=== PATIENT | female | born 1960 | race American Indian/Alaskan Native ===

== ENCOUNTER 2016-07-26 19:34 | Emergency (ER) | payer MEDICAID ==
[2016-07-26] MEDS ORDERED: CATAPRES ONE (21:16)
[2016-07-26] MEDS ORDERED: TYLENOL ONE (21:16)
[2016-07-26] MEDS ORDERED: TYLENOL PO ONE (21:20)
[2016-07-26] MEDS ORDERED: CATAPRES PO ONE (21:21)
[2016-07-26 21:54] LABS: Hematocrit 39.6 % (30.3-42.9); Hemoglobin 13.1 gm/dl (10.1-14.3); Mean Corpuscular HGB Conc 33 % (30-34); Mean Corpuscular Hemoglobin 28 pg (28-32); Mean Corpuscular Volume 85 fl (79-97); Platelet Count 277 K/mm3 (140-440); Red Blood Count 4.65 M/mm3 (3.65-5.03); Red Cell Distribution Width 15.6 % (13.2-15.2)
[2016-07-26 22:13] LABS: BUN/Creatinine Ratio 12.85; Blood Urea Nitrogen 9 mg/dL (7-17); Calcium 8.8 mg/dL (8.4-10.2); Carbon Dioxide 26 mmol/L (22-30); Glucose 101 mg/dL (65-100); Potassium 3.3 mmol/L (3.6-5.0); Sodium 142 mmol/L (137-145)
[2016-07-26 22:16] LABS: Anion Gap 16 mmol/L
--- NOTE | 2016-07-27 00:50 | Emergency Department Report ---
ED General Adult HPI - General Chief complaint: High BP Stated complaint: ELEVATED BLOOD PRESSURE Time Seen by Provider: 07/27/16 00:02 Source: patient Mode of arrival: Ambulatory Limitations: No Limitations - History of Present Illness Initial comments: Patient with hx of HTN on daily Lisinopril/HCTZ 29/06.5 presents with elevated BP since today. States had headache that has improved on Motrin. Denies chest pain, pressure or discomfort, vision loss or change, N/V, Weakness , or numbness. Reports compliance with BP meds. States has left hearing loss currently being managed by ENT. States scheduled to have MRI done tomorrow for this. denies other complaints. Severity scale (0 -10): 6 - Related Data Previous Rx's Medication Instructions Recorded Last Taken Type Metoprolol [Lopressor TAB] 25 mg PO HS #10 tablet 07/27/16 Unknown Rx Allergies Allergy/AdvReac Type Severity Reaction Status Date / Time No Known Allergies Allergy Verified 07/26/16 20:07 ED Review of Systems ROS: Stated complaint: ELEVATED BLOOD PRESSURE Other details as noted in HPI Comment: All other systems reviewed and negative ED Past Medical Hx - Past Medical History Previous Medical History?: Yes Hx Hypertension: Yes Hx Arthritis: Yes - Surgical History Past Surgical History?: Yes Additional Surgical History: back - Social History Smoking Status: Current Every Day Smoker Substance Use Type: None - Medications Home Medications: Home Medications Medication Instructions Recorded Confirmed Last Taken Type Metoprolol [Lopressor TAB] 25 mg PO HS #10 tablet 07/27/16 Unknown Rx ED Physical Exam - General Limitations: No Limitations General appearance: alert, in no apparent distress - Head Head exam: Present: atraumatic, normocephalic - Eye Eye exam: Present: normal appearance, PERRL, EOMI. Absent: scleral icterus, conjunctival injection, periorbital swelling, periorbital tenderness - ENT ENT exam: Present: normal exam, mucous membranes moist, TM's normal bilaterally , normal external ear exam - Neck Neck exam: Present: normal inspection, full ROM. Absent: tenderness, lymphadenopathy - Respiratory Respiratory exam: Present: normal lung sounds bilaterally. Absent: respiratory distress, chest wall tenderness, accessory muscle use, decreased breath sounds, prolonged expiratory - Cardiovascular Cardiovascular Exam: Present: regular rate, normal rhythm - GI/Abdominal GI/Abdominal exam: Present: soft. Absent: tenderness - Extremities Exam Extremities exam: Present: normal inspection, full ROM, normal capillary refill. Absent: tenderness, pedal edema, joint swelling, calf tenderness - Back Exam Back exam: Present: normal inspection, full ROM. Absent: tenderness, CVA tenderness (R), CVA tenderness (L) - Neurological Exam Neurological exam: Present: alert, oriented X3, normal gait, reflexes normal. Absent: motor sensory deficit - Psychiatric Psychiatric exam: Present: normal affect, normal mood - Skin Skin exam: Present: warm, dry, intact, normal color. Absent: diaphoretic ED Course Vital Signs 07/26/16 07/26/16 07/26/16 20:10 20:13 21:21 Temperature 98.4 F Pulse Rate 76 Respiratory 18 18 Rate Blood Pressure Blood Pressure [Left] Blood Pressure 194/112 176/100 [Right] O2 Sat by Pulse 100 Oximetry 07/26/16 07/26/16 07/27/16 21:22 22:37 00:05 Temperature Pulse Rate 87 73 84 Respiratory 16 Rate Blood Pressure 187/115 Blood Pressure 190/116 179/110 [Left] Blood Pressure [Right] O2 Sat by Pulse 95 Oximetry 07/27/16 07/27/16 07/27/16 00:39 00:57 01:38 Temperature Pulse Rate Respiratory Rate Blood Pressure 175/102 Blood Pressure 175/102 159/102 [Left] Blood Pressure [Right] O2 Sat by Pulse Oximetry ED Medical Decision Making - Lab Data Result diagrams: 07/26/16 21:38 07/26/16 21:38 Lab results reviewed. - Medical Decision Making 55 YOF with htn emergency x 1 day. Patient is stable. She will be DC'd on Metoprolol (see rx). She is to continue Lisinopril/HCTZ 29/06.5 as previously prescribed. Patient education, or follow-up/referral, and return instructions provided. She verbalized understanding and is agreeable to plan. Critical care attestation.: If time is entered above; I have spent that time in minutes in the direct care of this critically ill patient, excluding procedure time. ED Disposition Clinical Impression: Hypertensive emergency Disposition: DISCHARGED TO HOME OR SELFCARE Is pt being admited?: No Does the pt Need Aspirin: No Condition: Stable Instructions: Hypertension (ED) Additional Instructions: Follow instructions for care. Be compliant with medication(s). Start Metoprolol at bedtime as prescribed. Continue Lisinopril/HCTZ 20/12.5 as previously prescribed. Follow up with your PCP for BP recheck/monitor and follow up. Keep all healthcare related appointments. Return to ED for new or worsening condition. Prescriptions: Metoprolol [Lopressor TAB] 25 mg PO HS #10 tablet Referrals: PRIMARY CARE, [Primary Care Provider] - 24 Hours
[2016-07-27] MEDS ORDERED: CATAPRES PO ONE (00:52)
[2016-07-27 01:38] VITALS: BP 159/102
== END 2016-07-27 01:55 | disposition home or self-care (01) ==
LOC: ED 19:34
DX: I10 Essential (primary) hypertension (principal); M19.90 Unspecified osteoarthritis, unspecified site; F17.200 Nicotine dependence, unspecified, uncomplicated
CPT/HCPCS: 36415; 80048; 85027; 99283

== ENCOUNTER 2016-07-27 17:20 | Outpatient (CLI) | payer MEDICARE, MEDICAID ==
--- NOTE | 2016-07-28 14:40 | Magnetic Resonance Report ---
MRI BRAIN/IACS WITH AND WITHOUT CONTRAST: INDICATION: Left ear hearing loss. COMPARISON: None similar. FINDINGS: Multiplanar and multisequence MRI of the brain, including the ICAs performed utilizing 12 mL MultiHance intravenously. Symmetric, normal ventricles and sulci. Qyba-yt-yzwbwsau periventricular and white matter FLAIR and T2 weighted hyperintensities may represent small vessel end artery ischemic disease, including an approximately 4 mm periventricular lacunar infarct near the atrium of the right lateral ventricle, axial series 6, image 17. No acute infarct, hemorrhage, mass effect or midline shift. No abnormal extra-axial masses or fluid collections. Normal major intracranial vascular flow voids. No abnormal supratentorial enhancement. However, approximately 3-4 mm enhancing midline focus noted along the inferior susan/lower brainstem as on axial image 10, series 13, not perceptible on the precontrast images. Symmetric seventh and eighth nerve complexes without abnormal enhancement in the IACs. Normal remainder posterior fossa with preserved basilar cisterns. Normal eye globes. Mild bilateral ethmoid and frontal sinusitis, left more than right. Mild left sphenoid sinusitis as well. Clear remainder imaged paranasal sinuses and mastoid air cells. Partially empty sella. Normal remainder midline structures without evidence of Chiari malformation. Approximately 3 x 1.1 cm mild adenoidal prominence may be directly visualized. CONCLUSION: 1. Approximately 3-4 mm nonspecific enhancing focus in the inferior brainstem, as detailed above. 2. Various other incidental findings, including sinusitis, partially empty sella and slightly prominent adenoids in this patient with age-appropriate atrophy and microvascular changes, as detailed above. Thank you for the opportunity to participate in this patient's care.
== END 2016-07-27 17:21 | disposition home or self-care (01) ==
LOC: MRI 17:20
PROVIDERS: ATTEND Otolaryngology
DX: H91.20 Sudden idiopathic hearing loss, unspecified ear (principal); J32.2 Chronic ethmoidal sinusitis; J32.1 Chronic frontal sinusitis; J32.3 Chronic sphenoidal sinusitis; I63.8 Other cerebral infarction; G31.89 Other specified degenerative diseases of nervous system
CPT/HCPCS: 70553; A9577

== ENCOUNTER 2018-07-15 09:03 | Inpatient (IN) | payer OTHER, MEDICARE ==
--- NOTE | 2018-07-15 12:30 | Emergency Department Report ---
ED Neuro Deficit HPI - General Chief Complaint: Weakness Stated Complaint: FLANK PAIN Time Seen by Provider: 07/15/18 12:18 Source: patient, RN notes reviewed, old records reviewed Mode of arrival: Wheelchair Limitations: No Limitations - History of Present Illness Initial Comments: This is a pleasant 57-year-old female, who presents to the ER with the complaints of left leg weakness, left arm weakness, subjective unsteady gait, present since on a clock yesterday PM. Symptoms constant, painless, did not radiate anywhere, did not have exacerbating or relieving factors. Patient denies other complaints. -: Gradual (9:00 PM yesterday) Location: left arm, left leg Presenting Symptoms: Present: Weak/Paralyzed One Side. Absent: Sudden, Severe Headache, Blurred/Loss of Vision, Facial Droop/Numbness, Unable to Speak Clearly, Altered Mental Status History of same: No Place: home Severity: moderate Quality: weak Improves With: none Worsens With: none On Anticoagulants: No Context: sudden onset Associated Symptoms: denies other symptoms - Related Data Home Medications: Previous Rx's Medication Instructions Recorded Last Taken Type Metoprolol [Lopressor TAB] 25 mg PO HS #10 tablet 07/27/16 Unknown Rx Allergies/Adverse Reactions: Allergies Allergy/AdvReac Type Severity Reaction Status Date / Time No Known Allergies Allergy Verified 07/15/18 09:23 ED Review of Systems ROS: Stated complaint: FLANK PAIN Other details as noted in HPI Constitutional: denies: fever Eyes: denies: vision change ENT: denies: epistaxis Respiratory: denies: cough Cardiovascular: denies: chest pain Gastrointestinal: denies: abdominal pain Genitourinary: denies: dysuria Musculoskeletal: denies: back pain Skin: denies: lesions Neurological: weakness, numbness, abnormal gait. denies: headache Psychiatric: denies: anxiety ED Past Medical Hx - Past Medical History Previous Medical History?: Yes Hx Hypertension: Yes Hx GERD: Yes Hx Arthritis: Yes - Surgical History Past Surgical History?: Yes Additional Surgical History: Back, , bilateral foot surgery - Social History Smoking Status: Current Every Day Smoker Substance Use Type: Alcohol - Medications Home Medications: Home Medications Medication Instructions Recorded Confirmed Last Taken Type Metoprolol [Lopressor TAB] 25 mg PO HS #10 tablet 07/27/16 Unknown Rx ED Neuro Physical Exam - General Limitations: No Limitations General appearance: alert, in no apparent distress Suspected Stroke: Yes - Head Head exam: Present: atraumatic, normocephalic - Eye Eye exam: Present: normal appearance, PERRL, EOMI, other (visual acuity intact to finger counting, color perception, reading at a close distance). Absent: nystagmus - ENT ENT exam: Present: normal exam, normal orophraynx, mucous membranes moist, normal external ear exam - Neck Neck exam: Present: normal inspection, full ROM. Absent: tenderness, meningismus - Respiratory Respiratory exam: Present: normal lung sounds bilaterally. Absent: respiratory distress - Cardiovascular Cardiovascular Exam: Present: regular rate, normal rhythm, normal heart sounds. Absent: bradycardia, tachycardia, irregular rhythm, systolic murmur, diastolic murmur, rubs, gallop - GI/Abdominal GI/Abdominal exam: Present: soft. Absent: distended, tenderness, guarding, rebound, rigid, pulsatile mass - Extremities Exam Extremities exam: Present: normal inspection, full ROM, other (2+ pulses noted in the bilateral upper, lower extremities. Compartments soft. No long bony tenderness. The pelvis is stable.). Absent: tenderness, calf tenderness - Back Exam Back exam: Present: normal inspection, full ROM. Absent: tenderness, CVA tenderness (R), paraspinal tenderness, vertebral tenderness - Neurological Exam Neurological exam: Present: alert, oriented X3, CN II-XII intact, motor sensory deficit (there is decreased sensation to light touch left upper, left lower extremity. There is 4 out of 5 strength left upper, left lower extremity), other (5 out of 5 strength right upper, right lower extremity. Sensation intact to light touch right upper, right lower extremity) - NIHSS Assessment Interval: Baseline 1a. Level of Consciousness: alert/keenly responsive 1b. LOC Questions: answers both correctly 1c. LOC Commands: performs tasks correctly 2. Best Gaze: normal 3. Visual: no visual loss 4. Facial Palsy: normal symmetrical movement 5b. Motor Arm Right: no drift 5a. Motor Arm Left: drift 6a. Motor Leg Left: some gravity effort 6b. Motor Leg Right: no drift 7. Limb Ataxia: present 1 limb 8. Sensory: mild/moderate sensory loss 9. Best Language: no aphasia 10. Dysarthria: normal 11. Extinction/Inattention: no abnormality Total Score: 5 Stroke Severity: Moderate Stroke - Psychiatric Psychiatric exam: Present: normal affect, normal mood - Skin Skin exam: Present: warm, dry, intact, normal color. Absent: rash ED Course Vital Signs 07/15/18 07/15/18 07/15/18 09:10 15:05 15:07 Temperature 98.4 F 98.2 F Pulse Rate 89 76 Respiratory 18 Rate Blood Pressure 164/99 O2 Sat by Pulse 96 98 Oximetry - Lab Data Result diagrams: 07/15/18 12:41 07/15/18 12:58 Lab Results 07/15/18 07/15/18 07/15/18 Range/Units 12:41 12:42 12:42 WBC 13.6 H (4.5-11.0) K/mm3 RBC 4.70 (3.65-5.03) M/mm3 Hgb 13.8 (10.1-14.3) gm/dl Hct 40.4 (30.3-42.9) % MCV 86 (79-97) fl MCH 29 (28-32) pg MCHC 34 (30-34) % RDW 15.5 H (13.2-15.2) % Plt Count 424 (140-440) K/mm3 Lymph % (Auto) 30.1 (13.4-35.0) % Hoke % (Auto) 9.9 H (0.0-7.3) % Eos % (Auto) 1.0 (0.0-4.3) % Baso % (Auto) 0.6 (0.0-1.8) % Lymph # 4.1 (1.2-5.4) K/mm3 Hoke # 1.3 H (0.0-0.8) K/mm3 Eos # 0.1 (0.0-0.4) K/mm3 Baso # 0.1 (0.0-0.1) K/mm3 Seg Neutrophils % 58.4 (40.0-70.0) % Seg Neutrophils # 7.9 H (1.8-7.7) K/mm3 PT 12.3 (12.2-14.9) Sec. INR 0.88 (0.87-1.13) APTT 33.1 (24.2-36.6) Sec. Thrombin Time 15.4 (15.1-19.6) Sec. Sodium (137-145) mmol/L Potassium (3.6-5.0) mmol/L Chloride (98-107) mmol/L Carbon Dioxide (22-30) mmol/L Anion Gap mmol/L BUN (7-17) mg/dL Creatinine (0.7-1.2) mg/dL Estimated GFR ml/min BUN/Creatinine Ratio % Glucose (65-100) mg/dL POC Glucose 69 L (70-105) Calcium (8.4-10.2) mg/dL Total Bilirubin (0.1-1.2) mg/dL AST (5-40) units/L ALT (7-56) units/L Alkaline Phosphatase (35-129) units/L Total Creatine Kinase (30-135) units/L CK-MB (CK-2) (0.0-4.0) ng/mL CK-MB (CK-2) Rel Index (0-4) Troponin T (0.00-0.029) ng/mL Total Protein (6.3-8.2) g/dL Albumin (3.9-5) g/dL Albumin/Globulin Ratio % Urine Color (Yellow) Urine Turbidity (Clear) Urine pH (5.0-7.0) Ur Specific [place] (1.003-1.030) Urine Protein (Negative) mg/dL Urine Glucose (UA) (Negative) mg/dL Urine Ketones (Negative) mg/dL Urine Blood (Negative) Urine Nitrite (Negative) Urine Bilirubin (Negative) Urine Urobilinogen (<2.0) mg/dL Ur Leukocyte Esterase (Negative) Urine WBC (Auto) (0.0-6.0) /HPF Urine RBC (Auto) (0.0-6.0) /HPF U Epithel Cells (Auto) (0-13.0) /HPF 07/15/18 07/15/18 07/15/18 Range/Units 12:58 14:20 15:05 WBC (4.5-11.0) K/mm3 RBC (3.65-5.03) M/mm3 Hgb (10.1-14.3) gm/dl Hct (30.3-42.9) % MCV (79-97) fl MCH (28-32) pg MCHC (30-34) % RDW (13.2-15.2) % Plt Count (140-440) K/mm3 Lymph % (Auto) (13.4-35.0) % [place] % (Auto) (0.0-7.3) % Eos % (Auto) (0.0-4.3) % Baso % (Auto) (0.0-1.8) % Lymph # (1.2-5.4) K/mm3 [place] # (0.0-0.8) K/mm3 Eos # (0.0-0.4) K/mm3 Baso # (0.0-0.1) K/mm3 Seg Neutrophils % (40.0-70.0) % Seg Neutrophils # (1.8-7.7) K/mm3 PT (12.2-14.9) Sec. INR (0.87-1.13) APTT (24.2-36.6) Sec. Thrombin Time (15.1-19.6) Sec. Sodium 142 (137-145) mmol/L Potassium 4.2 (3.6-5.0) mmol/L Chloride 101.9 (98-107) mmol/L Carbon Dioxide 24 (22-30) mmol/L Anion Gap 20 mmol/L BUN 9 (7-17) mg/dL Creatinine 0.6 L (0.7-1.2) mg/dL Estimated GFR > 60 ml/min BUN/Creatinine Ratio 15 % Glucose 79 (65-100) mg/dL POC Glucose 71 (70-105) Calcium 9.4 (8.4-10.2) mg/dL Total Bilirubin 0.30 (0.1-1.2) mg/dL AST 20 (5-40) units/L ALT 12 (7-56) units/L Alkaline Phosphatase 103 (35-129) units/L Total Creatine Kinase 72 (30-135) units/L CK-MB (CK-2) < 1.0 (0.0-4.0) ng/mL CK-MB (CK-2) Rel Index 1.3 (0-4) Troponin T < 0.010 (0.00-0.029) ng/mL Total Protein 7.1 (6.3-8.2) g/dL Albumin 4.5 (3.9-5) g/dL Albumin/Globulin Ratio 1.7 % Urine Color Straw (Yellow) Urine Turbidity Clear (Clear) Urine pH 6.0 (5.0-7.0) Ur Specific [place] 1.016 (1.003-1.030) Urine Protein <15 mg/dl (Negative) mg/dL Urine Glucose (UA) 50 (Negative) mg/dL Urine Ketones Neg (Negative) mg/dL Urine Blood Neg (Negative) Urine Nitrite Neg (Negative) Urine Bilirubin Neg (Negative) Urine Urobilinogen < 2.0 (<2.0) mg/dL Ur Leukocyte Esterase Neg (Negative) Urine WBC (Auto) < 1.0 (0.0-6.0) /HPF Urine RBC (Auto) 1.0 (0.0-6.0) /HPF U Epithel Cells (Auto) 2.0 (0-13.0) /HPF 07/15/18 Range/Units 15:17 WBC (4.5-11.0) K/mm3 RBC (3.65-5.03) M/mm3 Hgb (10.1-14.3) gm/dl Hct (30.3-42.9) % MCV (79-97) fl MCH (28-32) pg MCHC (30-34) % RDW (13.2-15.2) % Plt Count (140-440) K/mm3 Lymph % (Auto) (13.4-35.0) % [place] % (Auto) (0.0-7.3) % Eos % (Auto) (0.0-4.3) % Baso % (Auto) (0.0-1.8) % Lymph # (1.2-5.4) K/mm3 [place] # (0.0-0.8) K/mm3 Eos # (0.0-0.4) K/mm3 Baso # (0.0-0.1) K/mm3 Seg Neutrophils % (40.0-70.0) % Seg Neutrophils # (1.8-7.7) K/mm3 PT (12.2-14.9) Sec. INR (0.87-1.13) APTT (24.2-36.6) Sec. Thrombin Time (15.1-19.6) Sec. Sodium (137-145) mmol/L Potassium (3.6-5.0) mmol/L Chloride (98-107) mmol/L Carbon Dioxide (22-30) mmol/L Anion Gap mmol/L BUN (7-17) mg/dL Creatinine (0.7-1.2) mg/dL Estimated GFR ml/min BUN/Creatinine Ratio % Glucose (65-100) mg/dL POC Glucose 44 L (70-105) Calcium (8.4-10.2) mg/dL Total Bilirubin (0.1-1.2) mg/dL AST (5-40) units/L ALT (7-56) units/L Alkaline Phosphatase (35-129) units/L Total Creatine Kinase (30-135) units/L CK-MB (CK-2) (0.0-4.0) ng/mL CK-MB (CK-2) Rel Index (0-4) Troponin T (0.00-0.029) ng/mL Total Protein (6.3-8.2) g/dL Albumin (3.9-5) g/dL Albumin/Globulin Ratio % Urine Color (Yellow) Urine Turbidity (Clear) Urine pH (5.0-7.0) Ur Specific [place] (1.003-1.030) Urine Protein (Negative) mg/dL Urine Glucose (UA) (Negative) mg/dL Urine Ketones (Negative) mg/dL Urine Blood (Negative) Urine Nitrite (Negative) Urine Bilirubin (Negative) Urine Urobilinogen (<2.0) mg/dL Ur Leukocyte Esterase (Negative) Urine WBC (Auto) (0.0-6.0) /HPF Urine RBC (Auto) (0.0-6.0) /HPF U Epithel Cells (Auto) (0-13.0) /HPF - EKG Data -: EKG Interpreted by Nd EKG shows normal: sinus rhythm Rate: normal When compared to previous EKG there are: previous EKG unavailable 07/15/18 16:03 Motion artifact, sinus, 72 bpm, poor R-wave progression, low voltage, abnormal EKG, not consistent with ST elevation myocardial infarction - Radiology Data Radiology results: report reviewed, image reviewed Noncontrast CT scan of the brain is negative for acute disease. Angiogram of head and neck negative for acute thromboembolic disease. - Medical Decision Making Differential diagnosis, including but not limited to: Subacute stroke, hypoglycemia Assessment and plan: 57-year-old female who presents more than 4.5 hours after neurological symptom onset. Initial NIH score is 5. She is not a TPA candidate as she does not present within 4.5 hours of symptom onset. Angiogram of head and neck did not demonstrate clots or large vessel occlusion that would require emergent endovascular intervention. The patient was incidentally found to have hypoglycemia, and was given multiple doses of dextrose 50, and fed, but still had dropping glucose, therefore she will be started on dextrose 5% half normal at 125 mL per hour. She will also be given aspirin. Discussed with consulting stroke expert, Dr. Jeffery Barrera, who agreed patient not a TPA candidate, and agreed with plan for angiogram acquisition. Aspirin will be ordered, and the Hospital physician, Dr. Batres, who will admit the patient to the medical service. I discussed this plan of care with the patient and family, who verbalizes understanding, and indicated that they were amenable to hospitalization. - Core Measures Measure Exclusions: not indicated - Thrombolytic Inclusion/Exclusion Thrombolytic Exclusion Criteria: Symptom Onset > 3 Hours Critical care attestation.: If time is entered above; I have spent that time in minutes in the direct care of this critically ill patient, excluding procedure time. ED Disposition Clinical Impression: Hypoglycemia, Left-sided weakness Disposition: DC-09 OP ADMIT IP TO THIS HOSP Is pt being admited?: Yes Does the pt Need Aspirin: Yes Condition: Stable Referrals: CELINE DUARTE APRN-BC [Primary Care Provider] - 3-5 Days
[2018-07-15 12:48] LABS: Basophils # (Auto) 0.1 K/mm3 (0.0-0.1); Basophils % (Auto) 0.6 % (0.0-1.8); Eosinophils # (Auto) 0.1 K/mm3 (0.0-0.4); Hematocrit 40.4 % (30.3-42.9); Hemoglobin 13.8 gm/dl (10.1-14.3); Lymphocytes # (Auto) 4.1 K/mm3 (1.2-5.4); Lymphocytes % (Auto) 30.1 % (13.4-35.0); Mean Corpuscular HGB Conc 34 % (30-34); Mean Corpuscular Volume 86 fl (79-97); Monocytes # (Auto) 1.3 K/mm3 (0.0-0.8); Monocytes % (Auto) 9.9 % (0.0-7.3); Platelet Count 424 K/mm3 (140-440); Red Cell Distribution Width 15.5 % (13.2-15.2)
[2018-07-15] MEDS ORDERED: D50W (25GM) Syringe IV ONE ×3 (12:55→15:19)
--- NOTE | 2018-07-15 12:56 | Cat Scan Report ---
FINAL REPORT EXAM: CT HEAD/BRAIN WO CON HISTORY: Stroke symptoms TECHNIQUE: CT of the Head without IV contrast. PRIORS: None currently available. FINDINGS: There is no evidence for acute ischemia. There is no hemorrhage. There is no midline shift. There is no hydrocephalus. There is no mass. Age appropriate oconnell-white matter attenuation is noted. There is no calvarial fracture. The temporal bones demonstrate aerated mastoid air cells. The middle ears appear unremarkable. Paranasal sinuses are unremarkable. Globes are intact. IMPRESSION: No acute intracranial findings.
[2018-07-15 13:00] LABS: INR 0.88 (0.87-1.13)
[2018-07-15 13:01] LABS: Partial Thromboplastin Time 33.1 Sec. (24.2-36.6); Thrombin Time 15.4 Sec. (15.1-19.6)
[2018-07-15 13:42] LABS: Alanine Aminotransferase 12 units/L (7-56); Albumin 4.5 g/dL (3.9-5); BUN/Creatinine Ratio 15; Blood Urea Nitrogen 9 mg/dL (7-17); Calcium 9.4 mg/dL (8.4-10.2); Hemolysis Index 77
[2018-07-15 13:44] LABS: Creatine Kinase MB < 1.0 ng/mL (0.0-4.0)
[2018-07-15] MEDS ORDERED: D50W (25GM) Syringe IV PRN (15:19)
[2018-07-15] MEDS ORDERED: BABY ASPIRIN PO ONE (15:19)
--- NOTE | 2018-07-15 15:19 | Cat Scan Report ---
FINAL REPORT EXAM: CT ANGIO HEAD HISTORY: stroke sx TECHNIQUE:: CTA of the Head with IV contrast. Coronal and sagittal reconstructed imaging provided. CTA of the Neck with IV contrast. Coronal and sagittal reconstructed imaging provided. Carotid stenos is calculated by the NASCET method. PRIORS:: CT head July 15, 2018. FINDINGS:: HEAD: Ajii-vd-bswdnmjw atherosclerotic disease at the cavernous carotids. Mild disease at the right and left M1 segments. Mild plaque at the intracranial vertebral arteries bilaterally. Otherwise, the anterior and posterior circulations appear unremarkable. There is no aneurysm, dissection, vascular malformation, or significant vascular stenosis. There is n o evidence for vasculitis. NECK: RIGHT CAROTID: Origin: Unremarkable. Common: Unremarkable. Tortuous. Bifurcation: Mild calcified plaque. Internal: Unremarkable. Tortuous. External: Unremarkable. There is no aneurysm, dissection, vascular malformation, or significant vascular stenosis. There is n o evidence for vasculitis. LEFT CAROTID: Origin: Unremarkable. Common: Unremarkable. Bifurcation: Xwxv-cb-npgwxwve calcified plaque. Internal: Nugh-oq-ezdqttty plaque proximally. Patent patent throughout. Tortuous. External: Mild plaque proximally. Patent throughout. There is no aneurysm, dissection, vascular malformation, or significant vascular stenosis. There is n o evidence for vasculitis. VERTEBRALS: Equally dominant. There is no aneurysm, dissection, vascular malformation, or significant vascular stenosis. There is n o evidence for vasculitis. Partially imaged thoracic aorta does not demonstrate any aneurysm or dissection. Mild aortic atherosc lerotic disease. Zvps-mz-rgnwahml disease at the origin the left subclavian artery. Otherwise major b [place] arteries are intact. Heterogenous thyroid gland. A distinct nodules not evident; however, nodules are not excluded. Bibasilar dependent subsegmental atelectasis in both lungs. IMPRESSION:: Unremarkable CTA of the Head and neck.
--- NOTE | 2018-07-15 15:19 | Cat Scan Report ---
FINAL REPORT EXAM: CT ANGIO NECK HISTORY: stroke sx TECHNIQUE: CTA of the Head with IV contrast. Coronal and sagittal reconstructed imaging provided. CTA of the Neck with IV contrast. Coronal and sagittal reconstructed imaging provided. Carotid stenos is calculated by the NASCET method. PRIORS: CT head July 15, 2018. FINDINGS: HEAD: Kblu-ut-lglklctn atherosclerotic disease at the cavernous carotids. Mild disease at the right and left M1 segments. Mild plaque at the intracranial vertebral arteries bilaterally. Otherwise, the anterior and posterior circulations appear unremarkable. There is no aneurysm, dissection, vascular malformation, or significant vascular stenosis. There is n o evidence for vasculitis. NECK: RIGHT CAROTID: Origin: Unremarkable. Common: Unremarkable. Tortuous. Bifurcation: Mild calcified plaque. Internal: Unremarkable. Tortuous. External: Unremarkable. There is no aneurysm, dissection, vascular malformation, or significant vascular stenosis. There is n o evidence for vasculitis. LEFT CAROTID: Origin: Unremarkable. Common: Unremarkable. Bifurcation: Lpzj-em-gogpklmn calcified plaque. Internal: Kavz-is-fnblzfdz plaque proximally. Patent patent throughout. Tortuous. External: Mild plaque proximally. Patent throughout. There is no aneurysm, dissection, vascular malformation, or significant vascular stenosis. There is n o evidence for vasculitis. VERTEBRALS: Equally dominant. There is no aneurysm, dissection, vascular malformation, or significant vascular stenosis. There is n o evidence for vasculitis. Partially imaged thoracic aorta does not demonstrate any aneurysm or dissection. Mild aortic atherosc lerotic disease. Nihj-em-jiyeqnzh disease at the origin the left subclavian artery. Otherwise major b [place] arteries are intact. Heterogenous thyroid gland. A distinct nodules not evident; however, nodules are not excluded. Bibasilar dependent subsegmental atelectasis in both lungs. IMPRESSION: Unremarkable CTA of the Head and neck.
[2018-07-15 15:31] LABS: Bilirubin,Urine NEG (Negative); Blood,Urine NEG (Negative); Color,Urine Straw (Yellow); Protein,Urine <15 mg/dL mg/dL (Negative); Urobilinogen,Urine < 2.0 mg/dL (<2.0); WBC,Urine < 1.0 /HPF (0.0-6.0)
[2018-07-15] MEDS: D5/0.45NS 1,000 ML IV SCH ×2 (15:59→22:46)
[2018-07-15] MEDS ORDERED: SODIUM CHLORIDE FLUSH SYRINGE 10 ML IV PRN (16:35)
[2018-07-15] MEDS ORDERED: PROVENTIL IH PRN (16:35)
[2018-07-15] MEDS ORDERED: PHENERGAN PR PRN (16:35)
[2018-07-15] MEDS ORDERED: MILK OF MAGNESIA PO PRN (16:35)
[2018-07-15] MEDS ORDERED: MORPHINE IV PRN (16:35)
[2018-07-15] MEDS ORDERED: DULCOLAX PR PRN (16:35)
[2018-07-15] MEDS ORDERED: ZOFRAN IV PRN (16:35)
[2018-07-15] MEDS ORDERED: TYLENOL PO PRN (16:35)
[2018-07-15] MEDS ORDERED: REGLAN PO PRN (16:35)
--- NOTE | 2018-07-15 16:35 | History and Physical Report ---
History of Present Illness Chief complaint: I Feel weak History of present illness: 57 YO Female with Obesity, HTN, GERD, OA, Nicotine Dependence presents to ED for evaluation. Pt states that she has experienced Left leg and arm weakness, gait instability that began around bedtime at 2100 hrs. Pt went to bed, and awoke with persistent symptoms today. Pt transported to [facility] for further care and evaluation. Pt seen and evaluated in ED, and found to have symptoms consistent with Acute CVA. Pt is outside therapeutic window for TPA. Pt admitted to telemetry and initiated on CVA protocol. Pt denies fever, chills, CP, Trauma, Falls, skin rash, prodictive cough, recent ill contacts, prolonged travel/immobility, unilateral leg swelling, calf pain, hemopthsis, individual/family history of DVT/PT/Blood Clotting Disorders. Past History Past Medical History: arthritis, diabetes, GERD, hypertension, other (Nicotine Dependence) Past Surgical History: , Other (Back surgery, Foot Surgery) Social history: , smoking. denies: alcohol abuse, prescription drug abuse Family history: hypertension Medications and Allergies Allergies Allergy/AdvReac Type Severity Reaction Status Date / Time No Known Allergies Allergy Verified 07/15/18 09:23 Home Medications Medication Instructions Recorded Confirmed Last Taken Type Metoprolol [Lopressor TAB] 25 mg PO HS #10 tablet 07/27/16 07/15/18 1 Day Ago Rx ~07/14/18 Amlodipine Besylate [Norvasc] 10 mg PO DAILY 07/15/18 07/15/18 1 Day Ago History ~07/14/18 Ergocalciferol [Vitamin D2] 50,000 unit PO QWEEK 07/15/18 07/15/18 07/11/18 10:00 History Oxybutynin [Ditropan] 5 mg PO DAILY 07/15/18 07/15/18 07/14/18 20:00 History Pantoprazole [Protonix] 40 mg PO QDAY 07/15/18 07/15/18 1 Day Ago History ~07/14/18 Terbinafine (Nf) [LamiSIL] 250 mg PO QDAY 07/15/18 07/15/18 2 Days Ago History ~07/13/18 Active Meds: Active Medications Dextrose (D50w (25gm) Syringe) 50 ml IV PRN PRN PRN Reason: Hypoglycemia Dextrose/Sodium Chloride (D5/0.45ns) 1,000 mls @ 125 mls/hr IV DIRECT [facility] Last Admin: 07/15/18 15:59 Dose: 125 mls/hr Documented by: Review of Systems Constitutional: no weight loss, no weight gain, no fever, no chills Ears, nose, mouth and throat: no ear pain, no ear discharge, no tinnitis, no decreased hearing, no nose pain Breasts: no change in shape, no swelling, no mass Cardiovascular: no chest pain, no orthopnea, no palpitations, no rapid/irregular heart beat, no edema Respiratory: no cough, no cough with sputum, no excessive sputum, no hemoptysis Gastrointestinal: no nausea, no vomiting, no diarrhea Genitourinary Female: no pelvic pain, no flank pain, no menorrhagia, no dysuria, no urinary frequency, no urgency Rectal: no pain, no incontinence, no bleeding Integumentary: no rash, no pruritis, no redness, no sores, no wounds Neurological: weakness, no paralysis, no seizures, no syncope Psychiatric: no memory loss, no change in sleep habits, no sleep disturbances, no insomnia, no hypersomnia, no change in appetite Endocrine: no polyphagia, no excessive thirst, no polydipsia, no polyuria, no nocturia Hematologic/Lymphatic: no easy bruising, no easy bleeding, no lymphadenopathy, no lymphedema Allergic/Immunologic: no urticaria, no allergic rhinitis, no wheezing, no persistent infections, no anaphylaxis, no angioedema Exam - Constitutional Vitals: Temp Pulse Resp BP Pulse Ox 98.2 F 76 18 164/99 98 07/15/18 15:05 07/15/18 15:05 07/15/18 09:10 07/15/18 09:10 07/15/18 15:07 General appearance: Present: mild distress - EENT Eyes: Present: PERRL ENT: hearing intact, clear oral mucosa - Neck Neck: Present: supple, normal ROM - Respiratory Respiratory effort: normal Respiratory: bilateral: CTA - Cardiovascular Heart Sounds: Present: S1 & S2. Absent: rub, click - Extremities Extremities: pulses symmetrical, No edema Peripheral Pulses: within normal limits - Abdominal General gastrointestinal: Present: soft, non-tender, non-distended, normal bowel sounds Female genitourinary: Present: normal - Integumentary Integumentary: Present: clear, warm, dry - Musculoskeletal Musculoskeletal: gait normal, strength equal bilaterally - Psychiatric Psychiatric: appropriate mood/affect, intact judgment & insight - Neurologic Neurologic: CNII-XII intact, moves all extremities Results - Labs CBC & Chem 7: 07/15/18 12:41 07/15/18 12:58 Labs: Abnormal lab results 07/15/18 07/15/18 07/15/18 Range/Units 12:41 12:42 12:58 WBC 13.6 H (4.5-11.0) K/mm3 RDW 15.5 H (13.2-15.2) % [place] % (Auto) 9.9 H (0.0-7.3) % [place] # 1.3 H (0.0-0.8) K/mm3 Seg Neutrophils # 7.9 H (1.8-7.7) K/mm3 Creatinine 0.6 L (0.7-1.2) mg/dL POC Glucose 69 L (70-105) 07/15/18 Range/Units 15:17 WBC (4.5-11.0) K/mm3 RDW (13.2-15.2) % [place] % (Auto) (0.0-7.3) % [place] # (0.0-0.8) K/mm3 Seg Neutrophils # (1.8-7.7) K/mm3 Creatinine (0.7-1.2) mg/dL POC Glucose 44 L (70-105) Assessment and Plan - Patient Problems (1) CVA (cerebral vascular accident) Current Visit: Yes Status: Acute Qualifiers: Precerebral and cerebral artery: middle cerebral artery Laterality of affected vessel: right Plan to address problem: Admit to telemetry: Stroke protocol, CT Head, MRI Brain, MRA Brain, PT/OT/Speech Therapy, Echo, Carotid Doppler, EEG, Neuro checks, antiplatelet therapy, lipid panel, statin therapy, neurology consulted, (2) SIRS (systemic inflammatory response syndrome) Current Visit: Yes Status: Acute Plan to address problem: Empiric antibiotic therapy, repeat CBC, chest x ray, urinalysis (3) Nicotine dependence unspecified, with withdrawal Current Visit: Yes Status: Acute Qualifiers: Nicotine product type: cigarettes Qualified Code(s): F17.213 - Nicotine dependence, cigarettes, with withdrawal Plan to address problem: Smoking cessation counseling, supportive care. (4) DVT prophylaxis Current Visit: Yes Status: Acute Plan to address problem: SCD to BLE while in bed.
[2018-07-16] MEDS: D5/0.45NS 1,000 ML IV SCH ×2 (06:24→16:26)
[2018-07-16] MEDS: ASPIRIN PO SCH (09:39)
--- NOTE | 2018-07-16 10:11 | Progress Note ---
Subjective Date of service: 07/16/18 Interval history: I reviewed the CT of the head at the time of stroke alert and noted minimal white matters changes c/w agwe the CTA of the head and neck only show mod to mild atheromatous changes in moderate vessels no acute thrombus or surgical disease medical w/u for stroke recommended onset of symptoms include left arm weakness based on EMS reports etc. Objective - Vital Sign Vital Signs - 12hr 07/15/18 07/16/18 07/16/18 23:45 04:22 08:01 Temperature 97.0 F L 98.0 F 98.4 F Pulse Rate 62 65 75 Respiratory 18 18 20 Rate Blood Pressure 136/81 151/81 138/79 O2 Sat by Pulse 96 100 100 Oximetry - Laboratory Findings CBC and BMP: 07/15/18 12:41 07/15/18 12:58 Abnormal Lab Findings: Abnormal Labs 07/15/18 07/15/18 07/15/18 12:41 12:42 12:58 WBC 13.6 H RDW 15.5 H [place] % (Auto) 9.9 H Ross # 1.3 H Seg Neutrophils # 7.9 H Creatinine 0.6 L POC Glucose 69 L 07/15/18 07/15/18 07/16/18 15:17 18:57 06:29 WBC RDW [place] % (Auto) Ross # Seg Neutrophils # Creatinine POC Glucose 44 L 117 H 109 H
--- NOTE | 2018-07-16 16:27 | Progress Note ---
Assessment and Plan Assessment and plan: TIA versus CVA - CVA workup is in progress - CT, CTA head normal findings - Patient is on statin and aspirin - Neurology consult appreciated - PT/OT evaluation Smoking cessation counseling DVT prophylaxis Disposition - Continue inpatient care History Interval history: Patient was seen and evaluated this morning, patient was alert and oriented, weakness resolved. Hospitalist Physical - Physical exam Narrative exam: Not in cardiopulmonary distress. The patient appeared well nourished and normally developed. Vital signs as documented. Head exam is unremarkable. No scleral icterus . Neck is without jugular venous distension, thyromegaly, or carotid bruits. Lungs are clear to auscultation. Cardiac exam reveals regular rate and Rhythm. Abdominal exam reveals normal bowel sounds. Extremities are nonedematous and both femoral and pedal pulses are normal. ORDER MANAGER: Alert and oriented 3. No focal weakness. - Constitutional Vitals: Temp Pulse Resp BP Pulse Ox 98.0 F 69 20 168/96 98 07/16/18 11:25 07/16/18 13:00 07/16/18 11:25 07/16/18 11:25 07/16/18 11:25 General appearance: Present: mild distress Results - Labs CBC & Chem 7: 07/15/18 12:41 07/15/18 12:58 Labs: Laboratory Last Values WBC 13.6 K/mm3 (4.5-11.0) H 07/15/18 12:41 RBC 4.70 M/mm3 (3.65-5.03) 07/15/18 12:41 Hgb 13.8 gm/dl (10.1-14.3) 07/15/18 12:41 Hct 40.4 % (30.3-42.9) 07/15/18 12:41 MCV 86 fl (79-97) 07/15/18 12:41 MCH 29 pg (28-32) 07/15/18 12:41 MCHC 34 % (30-34) 07/15/18 12:41 RDW 15.5 % (13.2-15.2) H 07/15/18 12:41 Plt Count 424 K/mm3 (140-440) 07/15/18 12:41 Lymph % (Auto) 30.1 % (13.4-35.0) 07/15/18 12:41 [place] % (Auto) 9.9 % (0.0-7.3) H 07/15/18 12:41 Eos % (Auto) 1.0 % (0.0-4.3) 07/15/18 12:41 Baso % (Auto) 0.6 % (0.0-1.8) 07/15/18 12:41 Lymph # 4.1 K/mm3 (1.2-5.4) 07/15/18 12:41 [place] # 1.3 K/mm3 (0.0-0.8) H 07/15/18 12:41 Eos # 0.1 K/mm3 (0.0-0.4) 07/15/18 12:41 Baso # 0.1 K/mm3 (0.0-0.1) 07/15/18 12:41 Seg Neutrophils % 58.4 % (40.0-70.0) 07/15/18 12:41 Seg Neutrophils # 7.9 K/mm3 (1.8-7.7) H 07/15/18 12:41 PT 12.3 Sec. (12.2-14.9) 07/15/18 12:42 INR 0.88 (0.87-1.13) 07/15/18 12:42 APTT 33.1 Sec. (24.2-36.6) 07/15/18 12:42 Thrombin Time 15.4 Sec. (15.1-19.6) 07/15/18 12:42 Sodium 142 mmol/L (137-145) 07/15/18 12:58 Potassium 4.2 mmol/L (3.6-5.0) 07/15/18 12:58 Chloride 101.9 mmol/L (98-107) 07/15/18 12:58 Carbon Dioxide 24 mmol/L (22-30) 07/15/18 12:58 Anion Gap 20 mmol/L 07/15/18 12:58 BUN 9 mg/dL (7-17) 07/15/18 12:58 Creatinine 0.6 mg/dL (0.7-1.2) L 07/15/18 12:58 Estimated GFR > 60 ml/min 07/15/18 12:58 BUN/Creatinine Ratio 15 % 07/15/18 12:58 Glucose 79 mg/dL (65-100) 07/15/18 12:58 POC Glucose 109 (70-105) H 07/16/18 06:29 Calcium 9.4 mg/dL (8.4-10.2) 07/15/18 12:58 Total Bilirubin 0.30 mg/dL (0.1-1.2) 07/15/18 12:58 AST 20 units/L (5-40) 07/15/18 12:58 ALT 12 units/L (7-56) 07/15/18 12:58 Alkaline Phosphatase 103 units/L (35-129) 07/15/18 12:58 Total Creatine Kinase 72 units/L (30-135) 07/15/18 12:58 CK-MB (CK-2) < 1.0 ng/mL (0.0-4.0) 07/15/18 12:58 CK-MB (CK-2) Rel Index 1.3 (0-4) 07/15/18 12:58 Troponin T < 0.010 ng/mL (0.00-0.029) 07/15/18 12:58 Total Protein 7.1 g/dL (6.3-8.2) 07/15/18 12:58 Albumin 4.5 g/dL (3.9-5) 07/15/18 12:58 Albumin/Globulin Ratio 1.7 % 07/15/18 12:58 Urine Color Straw (Yellow) 07/15/18 15:05 Urine Turbidity Clear (Clear) 07/15/18 15:05 Urine pH 6.0 (5.0-7.0) 07/15/18 15:05 Ur Specific [place] 1.016 (1.003-1.030) 07/15/18 15:05 Urine Protein <15 mg/dl mg/dL (Negative) 07/15/18 15:05 Urine Glucose (UA) 50 mg/dL (Negative) 07/15/18 15:05 Urine Ketones Neg mg/dL (Negative) 07/15/18 15:05 Urine Blood Neg (Negative) 07/15/18 15:05 Urine Nitrite Neg (Negative) 07/15/18 15:05 Urine Bilirubin Neg (Negative) 07/15/18 15:05 Urine Urobilinogen < 2.0 mg/dL (<2.0) 07/15/18 15:05 Ur Leukocyte Esterase Neg (Negative) 07/15/18 15:05 Urine WBC (Auto) < 1.0 /HPF (0.0-6.0) 07/15/18 15:05 Urine RBC (Auto) 1.0 /HPF (0.0-6.0) 07/15/18 15:05 U Epithel Cells (Auto) 2.0 /HPF (0-13.0) 07/15/18 15:05
[2018-07-16] MEDS: NORVASC PO SCH (17:59)
[2018-07-16] MEDS: PROTONIX PO SCH (18:00)
[2018-07-16] MEDS: DITROPAN PO SCH (18:05)
[2018-07-16] MEDS ORDERED: LOPRESSOR PO SCH (22:00)
[2018-07-17] MEDS: D5/0.45NS 1,000 ML IV SCH ×2 (00:25→09:31)
[2018-07-17 05:51] LABS: Basophils # (Auto) 0.1 K/mm3 (0.0-0.1); Basophils % (Auto) 0.6 % (0.0-1.8); Eosinophils # (Auto) 0.2 K/mm3 (0.0-0.4); Eosinophils % (Auto) 2.4 % (0.0-4.3); Hematocrit 39.5 % (30.3-42.9); Hemoglobin 13.2 gm/dl (10.1-14.3); Lymphocytes # (Auto) 3.6 K/mm3 (1.2-5.4); Lymphocytes % (Auto) 39.2 % (13.4-35.0); Mean Corpuscular HGB Conc 33 % (30-34); Mean Corpuscular Volume 87 fl (79-97); Monocytes # (Auto) 1.2 K/mm3 (0.0-0.8); Monocytes % (Auto) 12.8 % (0.0-7.3); Platelet Count 349 K/mm3 (140-440); Red Blood Count 4.52 M/mm3 (3.65-5.03); Red Cell Distribution Width 15.7 % (13.2-15.2)
[2018-07-17 06:10] LABS: BUN/Creatinine Ratio 10; Blood Urea Nitrogen 6 mg/dL (7-17); Calcium 8.3 mg/dL (8.4-10.2); Hemolysis Index 10
[2018-07-17 08:22] VITALS: BP 144/81
[2018-07-17] MEDS: ASPIRIN PO SCH (09:33)
[2018-07-17] MEDS: PROTONIX PO SCH (09:34)
[2018-07-17] MEDS: DITROPAN PO SCH (09:34)
[2018-07-17] MEDS: NORVASC PO SCH (09:34)
--- NOTE | 2018-07-17 12:25 | Vascular Lab Report ---
FINAL REPORT EXAM: VL CAROTID DUPLEX BILAT HISTORY: stroke TECHNIQUE: Grayscale and color and spectral Doppler ultrasound imaging of the carotid arteries was p erformed. PRIORS: None. FINDINGS: No areas of complete occlusion. Normal waveforms are seen throughout. No aneurysm. Normal flow is see n in the external carotid arteries. Antegrade flow is seen in the vertebral arteries. There is some c alcified atherosclerotic plaque in the proximal internal carotid arteries. Peak systolic velocities in cm/s below: Right: CCA: 104 proximally, 64 distally ICA: 43 proximally, 48 mid, 60 distally ECA: 39 Left: CCA: 78 proximally, 76 distally ICA: 46 proximally, 50 mid, 75 distally ECA: 65 The right ICA:CCA ratio is 0.6. The left ICA:CCA ratio is 1.0. IMPRESSION: Less than 50 percent stenosis of the internal carotid arteries.
--- NOTE | 2018-07-17 12:38 | Magnetic Resonance Report ---
MRI BRAIN WITHOUT CONTRAST: 07/17/18 CLINICAL: Stroke. TECHNIQUE: Axial diffusion, T1, T2, gradient echo T2*, coronal and axial FLAIR and sagittal T1 sequences on a 1.5 Andie magnet. FINDINGS: The ventricles and sulci are normal for age. Several tiny clustered foci of restricted diffusion in the right thalamus at the border with the posterior limb of the internal capsule. No other restricted diffusion. No mass or mass effect. No acute/subacute hemorrhage, edema or extra-axial collection. Extensive bilateral multifocal deep white matter and subcortical white matter hyperintensities on FLAIR and T2. A single tiny hypointensity in the left putamen on the gradient echo sequence is consistent with a chronic microbleed. No other chronic microbleeds are identified. Normal pituitary and optic chiasm. The brainstem and cerebellum are normal. Intact vascular flow voids. Normal sinuses. The orbits, and soft tissues are normal. Normal calvarium and skull base. IMPRESSION: 1. Acute/subacute nonhemorrhagic infarct of the right thalamus with several tiny clustered foci of restricted diffusion. 2. A single tiny chronic microbleed of the left putamen. 3. Extensive bilateral chronic white matter microangiopathy.
--- NOTE | 2018-07-17 12:40 | Magnetic Resonance Report ---
MRA HEAD WITHOUT CONTRAST: 07/17/18 CLINICAL: Stroke. TECHNIQUE: Axial 3-D [id number] MR angiography of the [place] with review of axial source images. FINDINGS: Intact [place] with no aneurysm, stenosis or occlusion. Symmetric blood flow in the anterior, middle and posterior cerebral arteries. Normal basilar and vertebral arteries. IMPRESSION: Normal study.
--- NOTE | 2018-07-17 15:07 | Discharge Summary ---
Providers - Providers Date of Admission: 07/15/18 16:35 Attending physician: DELROY PHELPS MD 07/15/18 Consult to Physician [CONS] Stat Comment: Consulting Provider: BEAU BEY Physician Instructions: Reason For Exam: suspected stroke 07/15/18 16:35 Occupational Therapy Evaluate and Treat [CONS] Routine Comment: Reason For Exam: Neuro deficits Physical Therapy Evaluation and Treat [CONS] Routine Comment: Reason For Exam: Neuro deficits 07/15/18 16:36 Speech Therapy Evaluation and Treat [CONS] Routine Reason For Exam: swallow eval 07/16/18 08:03 Consult to Physician [CONS] Routine Comment: Consulting Provider: GARIMA JOHNS Physician Instructions: Reason For Exam: CVA Primary care physician: CELINE DUARTE Hospitalization Reason for admission: Acute/subacute CVA Condition: Stable Pertinent studies: MRI IMPRESSION: 1. Acute/subacute nonhemorrhagic infarct of the right thalamus with several tiny clustered foci of restricted diffusion. 2. A single tiny chronic microbleed of the left putamen. 3. Extensive bilateral chronic white matter microangiopathy. MRA/MRV head FINDINGS: Intact [place] with no aneurysm, stenosis or occlusion. Symmetric blood flow in the anterior, middle and posterior cerebral arteries. Normal basilar and vertebral arteries. CT/CTA head ; no abnormality Bilateral carotids; <50% stenosis Hospital course: ADmission H/P 57 YO Female with Obesity, HTN, GERD, OA, Nicotine Dependence presents to ED for evaluation. Pt states that she has experienced Left leg and arm weakness, gait instability that began around bedtime at 2100 hrs. Pt went to bed, and awoke with persistent symptoms today. Pt transported to [facility] for further care and evaluation. Pt seen and evaluated in ED, and found to have symptoms consistent with Acute CVA. Pt is outside therapeutic window for TPA. Pt admitted to t elemet and initiated on CVA protocol. Patient was admitted to the floor and work up was done and showed acute/subacute non hemorrhagic infarction in the right thalamus. Other CVA work ups are negative. Weakness subsided and patient was hemodynamically stable and discharged home with statin and antiplatelet therapy. Disposition: - TO HOME OR SELFCARE Time spent for discharge: 32 minutes - Discharge Diagnoses (1) CVA (cerebral vascular accident) Status: Acute Qualifiers: Precerebral and cerebral artery: middle cerebral artery Laterality of affected vessel: right (2) Nicotine dependence unspecified, with withdrawal Status: Acute Qualifiers: Nicotine product type: cigarettes Qualified Code(s): F17.213 - Nicotine dependence, cigarettes, with withdrawal (3) Left-sided weakness Status: Resolved Core Measure Documentation - Palliative Care Palliative Care/ Comfort Measures: Not Applicable - Core Measures Any of the following diagnoses?: stroke - Stroke Discharge Requirements Statin for LDL = or >70 mg/dl on DC: Yes Anticoag for atrial fib/atrial flutter: Not Applicable Antithrombotic for ischemic stroke: Yes Exam - Physical Exam Narrative exam: Not in cardiopulmonary distress. The patient appeared well nourished and normally developed. Vital signs as documented. Head exam is unremarkable. No scleral icterus . Neck is without jugular venous distension, thyromegaly, or carotid bruits. Lungs are clear to auscultation. Cardiac exam reveals regular rate and Rhythm. Abdominal exam reveals normal bowel sounds. Extremities are nonedematous and both femoral and pedal pulses are normal. QUALITY LIAISON: Alert and oriented 3. No focal weakness. - Constitutional Vitals: Temp Pulse Resp BP Pulse Ox 98.3 F 60 18 144/81 98 07/17/18 08:21 07/17/18 08:21 07/17/18 08:21 07/17/18 08:21 07/17/18 08:21 Plan Activity: no restrictions Weight Bearing Status: Full Weight Bearing Diet: low cholesterol, low salt Follow up with: CELINE DUARTE APRN-BC [Primary Care Provider] - 3-5 Days Prescriptions: AtorvaSTATin [Lipitor] 40 mg PO QHS #30 tablet Aspirin [Aspirin TAB] 325 mg PO QDAY #30 tablet
[2018-07-17 15:43] LABS: Chol/HDL Ratio 4.26 %
[2018-07-17] MEDS ORDERED: K-DUR PO ONE (17:00)
--- NOTE | 2018-07-21 15:42 | Query-Altered Level of Consc. ---
Amor Garcia Josue Date:_07/21/18 Waist Fitter/CDS:_maximiliano/keysha Phone#:[phone] Exercise your independent professional judgment when responding to this query. Questions asked do not imply a particular answer is desired or expected. We greatly appreciate your clarification on this issue. Clinical Documentation States: This is a pleasant 57-year-old female, who presents to the ER with the complaints of left leg weakness, left arm weakness, subjective unsteady gait, present since on a clock yesterday PM. Presenting Symptoms: Present: Weak/Paralyzed One Side. Absent: Sudden, Severe Headache, Blurred/Loss of Vision, Facial Droop/Numbness, Unable to Speak Clearly, Altered Mental Status Discharge Diagnoses (1) CVA (cerebral vascular accident) (2) Nicotine dependence unspecified, with withdrawal Hypoglycemia Clinical Findings Show: 07/15/18 Glucose 69 Please provide an appropriate diagnosis clarifying the Etiology and Acuity of this clinical scenario: [ ] Metabolic Encephalopathy [ ] Toxic Encephalopathy [ ] Toxic - Metabolic Encephalopathy [ ] Septic Encephalopathy with Sepsis [ ] Septic Encephalopathy without Sepsis [ ] Acute Hepatic Encephalopathy [ ] Subacute Hepatic Encephalopathy [x ] Other: Please send to the admitter by the time I saw her i didn't see any encephalopathy. [ ] Unable To Determine [ ]Comment/Explanation: Present on Admission: [ ] Yes (Y) [ x] Clinically undeterminable (W) [ ] No (N) Please also document response in your Progress Notes and/or Discharge Summary and indicate if the condition was present on admission. INDUD
== END 2018-07-17 17:12 | disposition home or self-care (01) | DRG 65 ==
LOC: ED 09:03 → 4A 16:35
PROVIDERS: ADMIT Internal Medicine; ATTEND Internal Medicine
DX: I63.9 Cerebral infarction, unspecified (principal); R65.10 Systemic inflammatory response syndrome (SIRS) of non-infectious origin without acute organ dysfunction; F17.213 Nicotine dependence, cigarettes, with withdrawal; G81.94 Hemiplegia, unspecified affecting left nondominant side; E16.2 Hypoglycemia, unspecified; I10 Essential (primary) hypertension; K21.9 Gastro-esophageal reflux disease without esophagitis; M19.90 Unspecified osteoarthritis, unspecified site; F17.210 Nicotine dependence, cigarettes, uncomplicated; E66.9 Obesity, unspecified; Z68.32 Body mass index [BMI] 32.0-32.9, adult; Z82.49 Family history of ischemic heart disease and other diseases of the circulatory system
CPT/HCPCS: 36415; 70450; 70496; 70498; 70544; 70551; 80048; 80053; 80061; 81001; 82550; 82553; 82962; 84484; 85025; 85610; 85670; 85730; 93005; 93010; 93306; 93880; 96374; 96376; 99406; G0378; A9270-GY; Q9967

== ENCOUNTER 2018-10-19 08:29 | Outpatient (CLI) | payer MEDICARE ==
[2018-10-19 09:23] LABS: Blood Urea Nitrogen 13 mg/dL (7-17)
--- NOTE | 2018-10-19 11:33 | Cat Scan Report ---
PROCEDURE: CT ABDOMEN W CON TECHNIQUE: CT of the abdomen performed. Images were obtained after IV and oral contrast administrati on. Axial images and coronal and sagittal reformatted images were obtained. Delayed axial imaging inc luded. HISTORY: GASTROESOPHAGEAL REFLUX, CHEST PAIN, BLOATING COMPARISON: None FINDINGS: There is a calcified granuloma in the right lower lobe. The visualized liver, spleen, pancreas, adrenal glands and kidneys demonstrate no significant abnorma lity. There is a subcentimeter cyst in the right kidney and in the left lobe of the liver. There are aortoiliac atherosclerotic calcifications. There is no abdominal aortic aneurysm. There is no evidence for intestinal obstruction. The appendix is normal. There are multiple very small lymph nodes in the mesentery and in the retroperitoneum. No abnormal ly mphadenopathy seen. There is no abnormal fluid collection seen. There is no free intraperitoneal air. IMPRESSION: There is no significant abnormality identified. This document is electronically signed by Delores Sosa MD., October 19 2018 11:31:11 AM PRIETO
== END 2018-10-19 08:30 | disposition home or self-care (01) ==
LOC: CT 08:29
PROVIDERS: ATTEND Internal Medicine Gastroenterology
DX: K21.9 Gastro-esophageal reflux disease without esophagitis (principal); I70.0 Atherosclerosis of aorta; I10 Essential (primary) hypertension; M19.90 Unspecified osteoarthritis, unspecified site
CPT/HCPCS: 36415; 74160; 82565; 84520; Q9967

== ENCOUNTER 2019-05-03 09:00 | Outpatient (CLI) | payer OTHER, MEDICARE ==
--- NOTE | 2019-05-03 12:35 | Fluoroscopy Report ---
FL barium swallow (esophogram) / BARIUM SWALLOW WITH TABLET HISTORY: K21.9 GERD/R13.10 DYSPHAGIA. Patient states prior esophageal stricture dilatations. COMPARISON: None similar. Correlated to relevant images from 10/19/[address] TECHNIQUE: Single and double contrast barium technique utilized to evaluate the esophagus and the GE junction/proximal stomach. Patient swallowed thick and thin barium without any difficulty. Standard barium tablet also given. FINDINGS: Multilevel cervical spine degenerative spurring noted with greatest osteophytosis from C5 i nferiorly. Radiopaque dentures also incidentally noted. No aspiration or penetration with normal swal lowing mechanism. No abnormal pooling within the vallecula or piriform sinuses noted. Esophagus is no rmal in course and caliber, except for slight extrinsic aortic knob physiologic impression. Mild aort ic knob calcifications. No focal mucosal irregularity, mass, mass effect or critical stenosis. Normal peristalsis. No demonstratable hiatal hernia or gastroesophageal reflux. Visualized gastric fundus a ppears unremarkable. Duodenitis though questioned. Standard barium tablet passed into the stomach without any difficulty or delay. IMPRESSION: Normal barium swallow, though duodenitis questioned in this patient with mid to lower cer vical spine degenerative changes, as detailed above. Please correlate. Fluoroscopic time: 2.1 minutes Number of fluoroscopic images: 24 Thank you for the opportunity to participate in this patient's care. Signer Name: Amy Child Signed: 05/03/2019 12:31 PM Workstation Name: [id number]
== END 2019-05-03 09:01 | disposition home or self-care (01) ==
LOC: FLUORO 09:00
PROVIDERS: ATTEND Internal Medicine Gastroenterology
DX: K21.9 Gastro-esophageal reflux disease without esophagitis (principal); M47.812 Spondylosis without myelopathy or radiculopathy, cervical region; I10 Essential (primary) hypertension; M19.90 Unspecified osteoarthritis, unspecified site
CPT/HCPCS: 74220

== ENCOUNTER 2019-07-07 10:46 | Emergency (ER) | payer MEDICARE, OTHER ==
[2019-07-07] MEDS ORDERED: methylPREDNISolone Sod Succinate 125 MG/2 ML INJ IM ONE (14:18)
[2019-07-07] MEDS ORDERED: KETOROLAC 30 MG/1 ML INJ IM ONE (14:18)
--- NOTE | 2019-07-07 14:23 | Emergency Department Report ---
ED Extremity Problem HPI - General Chief complaint: Extremity Injury, Upper Stated complaint: RT ARM/HAND PAIN Time Seen by Provider: 07/07/19 14:02 Source: patient Mode of arrival: Ambulatory Limitations: No Limitations - History of Present Illness Initial comments: 58-year-old female with history of cervical radiculopathy and shoulder tendinitis presents to ED with right shoulder pain, radiating down to right fingers. She reports burning sensation in all 5 of her fingers of the right hand. She has intermittently experienced these symptoms previously. History of cervical spine surgery in the past. Patient states her symptoms usually improve with steroids and ibuprofen. MD Complaint: extremity pain -: days(s) (2) Location: right, upper extremity History of Same: Yes -: Yes arthralgia Radiation: distal Quality: burning, aching Consistency: constant Improves with: immobilization Worsens with: other (movement) Associated Symptoms: denies: fever - Related Data Home Medications Medication Instructions Recorded Confirmed Last Taken Amlodipine Besylate [Norvasc] 10 mg PO DAILY 07/15/18 07/15/18 1 Day Ago ~07/14/18 Ergocalciferol [Vitamin D2] 50,000 unit PO QWEEK 07/15/18 07/15/18 07/11/18 10:00 Oxybutynin [Ditropan] 5 mg PO DAILY 07/15/18 07/15/18 07/14/18 20:00 Pantoprazole [Protonix TAB] 40 mg PO QDAY 07/15/18 07/15/18 1 Day Ago ~07/14/18 Terbinafine (Nf) [LamiSIL] 250 mg PO QDAY 07/15/18 07/15/18 2 Days Ago ~07/13/18 Previous Rx's Medication Instructions Recorded Last Taken Type Metoprolol [Lopressor TAB] 25 mg PO HS #10 tablet 07/27/16 1 Day Ago Rx ~07/14/18 Aspirin 325 mg PO QDAY #30 tablet 07/17/18 Unknown Rx AtorvaSTATin [Lipitor] 40 mg PO QHS #30 tablet 07/17/18 Unknown Rx Naproxen [Naprosyn] 500 mg PO BID #20 tablet 07/07/19 Unknown Rx methOCARBAMOL [Robaxin TAB] 500 mg PO Q8HR PRN #20 tablet 07/07/19 Unknown Rx predniSONE [Deltasone] 50 mg PO QDAY #5 tab 07/07/19 Unknown Rx Allergies Allergy/AdvReac Type Severity Reaction Status Date / Time No Known Allergies Allergy Verified 07/15/18 09:23 ED Review of Systems ROS: Stated complaint: RT ARM/HAND PAIN Other details as noted in HPI Comment: All other systems reviewed and negative Constitutional: denies: chills, fever Musculoskeletal: as per HPI Neurological: paresthesias ED Past Medical Hx - Past Medical History Hx Hypertension: Yes Hx Congestive Heart Failure: No Hx Diabetes: No Hx GERD: Yes Hx Arthritis: Yes Hx Asthma: No Hx COPD: No - Surgical History Additional Surgical History: Back, , bilateral foot surgery - Social History Smoking Status: Current Every Day Smoker Substance Use Type: Alcohol - Medications Home Medications: Home Medications Medication Instructions Recorded Confirmed Last Taken Type Metoprolol [Lopressor TAB] 25 mg PO HS #10 tablet 07/27/16 1 Day Ago Rx ~07/14/18 Amlodipine Besylate [Norvasc] 10 mg PO DAILY 07/15/18 07/15/18 1 Day Ago History ~07/14/18 Ergocalciferol [Vitamin D2] 50,000 unit PO QWEEK 07/15/18 07/15/18 07/11/18 10:00 History Oxybutynin [Ditropan] 5 mg PO DAILY 07/15/18 07/15/18 07/14/18 20:00 History Pantoprazole [Protonix TAB] 40 mg PO QDAY 07/15/18 07/15/18 1 Day Ago History ~07/14/18 Terbinafine (Nf) [LamiSIL] 250 mg PO QDAY 07/15/18 07/15/18 2 Days Ago History ~07/13/18 Aspirin 325 mg PO QDAY #30 tablet 07/17/18 Unknown Rx AtorvaSTATin [Lipitor] 40 mg PO QHS #30 tablet 07/17/18 Unknown Rx Naproxen [Naprosyn] 500 mg PO BID #20 tablet 07/07/19 Unknown Rx methOCARBAMOL [Robaxin TAB] 500 mg PO Q8HR PRN #20 tablet 07/07/19 Unknown Rx predniSONE [Deltasone] 50 mg PO QDAY #5 tab 07/07/19 Unknown Rx ED Physical Exam - General Limitations: No Limitations General appearance: alert, in no apparent distress - Head Head exam: Present: atraumatic, normocephalic - Eye Eye exam: Present: normal appearance - ENT ENT exam: Present: mucous membranes moist - Neck Neck exam: Present: normal inspection - Respiratory Respiratory exam: Present: normal lung sounds bilaterally. Absent: respiratory distress - Cardiovascular Cardiovascular Exam: Present: regular rate, normal rhythm - GI/Abdominal GI/Abdominal exam: Absent: distended - Extremities Exam Extremities exam: Present: normal inspection, normal capillary refill, other (decreased ROM in right shoulder secondary to pain; tenderness to right shoulder; strength is intact 5/5; gross sensation intact; no swelling to the extremity) - Neurological Exam Neurological exam: Present: alert, oriented X3 - Psychiatric Psychiatric exam: Present: normal affect, normal mood - Skin Skin exam: Present: warm, dry, intact, normal color ED Course Vital Signs 07/07/19 07/07/19 10:52 14:59 Temperature 98.2 F 98.7 F Pulse Rate 93 H 84 Respiratory 16 18 Rate Blood Pressure 118/74 Blood Pressure 126/78 [Left] O2 Sat by Pulse 98 100 Oximetry ED Medical Decision Making - Differential Diagnosis cervical radiculopathy, rotator cuff tendinitis Critical care attestation.: If time is entered above; I have spent that time in minutes in the direct care of this critically ill patient, excluding procedure time. ED Disposition Clinical Impression: Cervical radiculopathy Disposition: - TO HOME OR SELFCARE Is pt being admited?: No Condition: Stable Instructions: Cervical Radiculopathy (ED), Tendinitis (ED) Prescriptions: predniSONE [Deltasone] 50 mg PO QDAY #5 tab Naproxen [Naprosyn] 500 mg PO BID #20 tablet methOCARBAMOL [Robaxin TAB] 500 mg PO Q8HR PRN #20 tablet PRN Reason: Muscle Spasm Referrals: PRIMARY CARE, [Primary Care Provider] - 3-5 Days YAZMIN GUTEIRREZ MD [Staff Physician] - 3-5 Days Time of Disposition: 14:26
[2019-07-07 15:00] VITALS: BP 126/78
== END 2019-07-07 14:58 | disposition home or self-care (01) ==
LOC: ED 10:46
DX: M54.12 Radiculopathy, cervical region (principal); K21.9 Gastro-esophageal reflux disease without esophagitis; M19.90 Unspecified osteoarthritis, unspecified site; I10 Essential (primary) hypertension; F17.200 Nicotine dependence, unspecified, uncomplicated; Z98.890 Other specified postprocedural states; Z79.899 Other long term (current) drug therapy
CPT/HCPCS: 96372; 99282; J1885; J2930

== ENCOUNTER 2021-12-01 13:21 | Outpatient (CLI) | payer MEDICARE ==
--- NOTE | 2021-12-01 15:06 | XRay Report ---
BILATERAL HIP 3 VIEW(S) INDICATION / CLINICAL INFORMATION: BILATERAL HIP PAIN COMPARISON: None available. FINDINGS: BONES / JOINT(S): No acute fracture or subluxation. Mild bilateral hip degenerative arthrosis. SOFT TISSUES: Mild bilateral periacetabular soft tissue calcification. ADDITIONAL FINDINGS: None. IMPRESSION: 1. No acute findings. Mild bilateral hip degenerative arthrosis. Signer Name: Cosmo Santana MD Signed: 12/01/2021 3:02 PM Workstation Name: [email or web address]
--- NOTE | 2021-12-01 15:07 | XRay Report ---
RIGHT TIBIA-FIBULA 2 VIEW(S) INDICATION / CLINICAL INFORMATION: PAIN IN RIGHT LEG M79.604 COMPARISON: None available. FINDINGS: BONES / JOINT(S): No acute fracture or subluxation. No significant arthritis. SOFT TISSUES: No significant abnormality. ADDITIONAL FINDINGS: None. IMPRESSION: 1. No acute findings. Signer Name: Cosmo Santana MD Signed: 12/01/2021 3:02 PM Workstation Name: [id number]
== END 2021-12-01 13:22 | disposition home or self-care (01) ==
LOC: XRAY 13:21
DX: M16.0 Bilateral primary osteoarthritis of hip (principal); M79.604 Pain in right leg
CPT/HCPCS: 73521